=== PATIENT | female | born 1980 | race Caucasian/White ===

== ENCOUNTER 2018-05-14 02:00 | Inpatient (IN) | payer BC, OTHER ==
[~2018-05-14] VITALS: Ht 172.7 cm; Wt 68.2 kg
[2018-05-14 02:06] VITALS: Ht 172.7 cm; Wt 68.2 kg
[2018-05-14] MEDS ORDERED: LORAZEPAM 2 MG INJ IV STA (02:20)
[2018-05-14] MEDS ORDERED: SOD CHLORIDE 0.9% 500 ML IV STA (02:20)
[2018-05-14] MEDS ORDERED: LORAZEPAM 2 MG INJ IV ONE (03:00)
[2018-05-14] MEDS ORDERED: LEVETIRACETAM 1000 MG (PMX) 100 ML IVPB ONE (03:00)
[2018-05-14] MEDS ORDERED: LAMOTRIGINE 100 MG TAB PO ONE (03:30)
[2018-05-14] MEDS ORDERED: BUSPIRONE 10 MG TAB PO ONE (03:30)
[2018-05-14] MEDS ORDERED: SOD CHLORIDE 0.9% 1,000 ML IV SCH (05:10)
[2018-05-14] MEDS ORDERED: HYDROCODONE/APAP (5/325) TAB PO PRN (05:30)
[2018-05-14] MEDS ORDERED: LORAZEPAM 2 MG INJ IV PRN ×2 (05:30)
[2018-05-14] MEDS ORDERED: NACL 0.9% 3 ML SYG IV SCH (05:30)
--- NOTE | 2018-05-14 05:36 | HP ---
Date/Time of Note Date/Time of Note DATE: 05/14/18 TIME: 05:36 Assessment/Plan VTE Prophylaxis Pharmacological prophylaxis: other Assessment/Plan Hospital Course Objective Physical exam General: Patient is laying in bed, very lethargic Mentation: Patient is arousable but lethargic Head: Normocephalic atraumatic Eyes: EOMI, pupils reactive to light Neck: Supple, nontender, midline Respiratory: Clear to auscultation bilaterally Cardiovascular: regular rate, no obvious murmurs Gastrointestinal: non-tender to palpation, bowel sounds heard. Neurological: Moves all extremities spontaneously Skin: No new skin lesions Assessment and plan Refractory epilepsy -Patient is supposedly allergic to benzodiazepines, as well as a variety of other medications, however 1 of her home medications is Onfi 5mg daily, which is a benzodiazepine so it is likely that patient is not allergic to benzodiazepine as her home nurse states. Patient was also given a dose of Ativan in the ED and has had no allergic reaction. -Ativan as needed -Patient states she has a specialist at [facility], unable to give name at this time due to lethargic state, will need to be inquire later -Restarted patient's Lamictal 150 mg twice daily, patient also supposedly on BuSpar 10 mg as needed daily for seizure onset -Patient does have a history of traumatic brain injury which is the likely cause of the seizures however the story at this time does not seem to fit as she states she has seizures every day, which is very uncommon. -We will defer to day team to consult neurology Ethanol use -Per home nurse patient was drinking heavily today, as at this time do not know if patient is an alcoholic, however will start patient on fluids and banana bag, no apparent signs of withdrawal at this time, will need to monitor closely and initiate withdrawal therapy if needed. -Ativan as needed for withdrawal symptoms, anxiety, or agitation Disposition -Admit patient for refractory epilepsy, await results of urine drug screen and day team to consult neurology. Result Diagram: 05/14/1840905/14/18409 Results 24hrs Laboratory Tests Test 05/14/18 04:10 White Blood Count 5.6 Red Blood Count 3.77 L Hemoglobin 11.7 L Hematocrit 35.2 L Mean Corpuscular Volume 93.4 Mean Corpuscular Hemoglobin 31.0 Mean Corpuscular Hemoglobin Concent 33.2 Red Cell Distribution Width 12.8 Platelet Count 250 Mean Platelet Volume 10.2 Immature Granulocytes % 0.200 Neutrophils % 51.2 Lymphocytes % 35.3 Monocytes % 8.3 Eosinophils % 4.5 Basophils % 0.5 Nucleated Red Blood Cells % 0.0 Immature Granulocytes # 0.010 Neutrophils # 2.9 Lymphocytes # 2.0 Monocytes # 0.5 Eosinophils # 0.3 Basophils # 0.0 Nucleated Red Blood Cells # 0.0 Sodium Level 142 Potassium Level 3.8 Chloride Level 108 Carbon Dioxide Level 25 Anion Gap 9 Blood Urea Nitrogen 7 Creatinine 0.60 Est Glomerular Filtrat Rate mL/min > 60 Glucose Level 80 Calcium Level 9.1 Troponin I < 0.012 Serum HCG, Qualitative NEGATIVE HPI/ROS Admit Date/Time Admit Date/Time Hx of Present Illness Patient is a female with a past medical history significant for severe epilepsy as well as traumatic brain injury who presents to [facility] brought in by ambulance for refractory epilepsy. 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 Patient is lethargic at this time after being given Ativan in the ED however is able to mumble some words and states that she has seizures every day but does not end up in the ED every day. Patient states she does have a neurologist as well as a seizure specialist at [facility] however is too lethargic to give me the exact name at this time. Further HPI cannot be done due to patient's lethargic status. PMH/Family/Social Past Medical History Coded Allergies: Benzodiazepines (Verified Allergy, Unknown, 05/14/18) Sulfa (Sulfonamide Antibiotics) (Verified Allergy, Unknown, 05/14/18) levetiracetam (Verified Allergy, Unknown, 05/14/18) oxcarbazepine (Verified Allergy, Unknown, 05/14/18) phenytoin (Verified Allergy, Unknown, 05/14/18) topiramate (Verified Allergy, Unknown, 05/14/18) Social History Smoking Status: Current every day smoker Exam/Review of Systems Vital Signs Vitals Vital Signs Date Temp Pulse Resp B/P (MAP) Pulse Ox O2 O2 Flow FiO2 Time Delivery Rate 05/14/18 97.4 100 16 132/86 98 Room Air 04:00 (101) FILI,BALJINDER May 14, 2018 05:36
[2018-05-14] MEDS ORDERED: KETOROLAC 15 MG INJ IV STA (05:59)
[2018-05-14] MEDS ORDERED: LAMO150T2 PO (07:20)
[2018-05-14] MEDS ORDERED: FOLI-49 PO (07:21)
[2018-05-14] MEDS ORDERED: CITA40TA6 PO (07:21)
[2018-05-14] MEDS ORDERED: CLOB10TA PO ×2 (07:21→09:04)
[2018-05-14] MEDS ORDERED: LACT1TAB19 PO (07:22)
[2018-05-14] MEDS ORDERED: HYDR-4011 PO (07:23)
[2018-05-14] MEDS ORDERED: LAMOTRIGINE 100 MG TAB PO SCH ×2 (09:00→10:00)
[2018-05-14] MEDS ORDERED: FAMOTIDINE 20 MG INJ IV SCH (09:00)
[2018-05-14] MEDS ORDERED: MULTIVITAMINS 10 ML, THIAMINE 100 MG, FOLIC ACID 1 MG in SOD CHLORIDE 0.9% 1,000 ML IVPB SCH (09:00)
[2018-05-14] MEDS ORDERED: HYDR-3605 PO (09:05)
[2018-05-14] MEDS ORDERED: FOLIC ACID 1 MG TAB PO SCH (10:00)
[2018-05-14] MEDS ORDERED: HYDROCODONE/APAP (7.5/325) TAB PO PRN (10:00)
[2018-05-14] MEDS ORDERED: [UNRECOGNIZED DRUG - REMARK] XX SCH (10:00)
[2018-05-14] MEDS ORDERED: CITALOPRAM 20 MG TAB PO SCH (10:00)
[2018-05-14] MEDS ORDERED: CLOBAZAM 5 MG PO SCH (10:00)
--- NOTE | 2018-05-14 14:47 | PDOCDIS ---
Discharge Instructions DIAGNOSIS Discharge Diagnosis Seizure CONDITION 2 [id number] Patient Condition: [id number] Stable FOLLOW UP/APPOINTMENTS Follow-up Plan See your neurologist in clinic [facility]. Continue your medications. Return to the ED if you have any concerning symptoms KATHLEEN MIKE MD May 14, 2018 14:47
--- NOTE | 2018-05-14 14:53 | DS ---
Date/Time of Note Date/Time of Note DATE: 05/14/18 TIME: 14:52 Discharge Summary Admission/Discharge Info Admit Date/Time Discharge Date/Time Discharge Diagnosis Seizure Patient Condition: Stable Hospital Course The patient was given ativan following a seizure. She was continued on her home anti-epileptic drugs and had no further seizure activity. Alcohol level was elevated. She was counseled to avoid alcohol as this can cause seizures. Neurology was consulted. However, the patient requested to be discharged prior to their evaluation. She has an appointment with her neurologist in the [facility] [place]. She was advise to return to the hospital if she has any concerning symptoms and to otherwise continue her AEDs. Home Meds Reported Medications Hydrocodone/Acetaminophen (Hydrocodon-Acetaminoph 7.5-325) 1 Each Tablet, 1 EACH PO DAILY PRN for SEVERE PAIN LEVEL 7-10, TAB 05/14/18 Clobazam (Onfi) 10 Mg Tablet, 5 MG PO DAILY, TAB 05/14/18 Lactobacillus Acidophilus (Acidophilus) 1 Each Tablet, 1 EACH PO DAILY, TAB 05/14/18 Folic Acid* (Folic Acid*) 1 Mg Tablet, 1 MG PO DAILY, TAB 05/14/18 Citalopram Hydrobromide* (Citalopram Hydrobromide*) 40 Mg Tablet, 40 MG PO QAM, #30 TAB 05/14/18 Lamotrigine* (Lamotrigine*) 150 Mg Tablet, 150 MG PO BID, TAB 05/14/18 Discontinued Reported Medications Clobazam (Onfi) 10 Mg Tablet, 10 MG PO BID, TAB 05/14/18 Follow-up Plan See your neurologist in clinic [facility]. Continue your medications. Return to the ED if you have any concerning symptoms Primary Care Provider Not On Staff Doctor Pending Labs Laboratory Tests Test 05/14/18 04:10 05/14/18 05:38 White Blood Count 5.6 10^3/ul (4.8-10.8) Red Blood Count 3.77 10^6/ul (4.20-5.40) Hemoglobin 11.7 g/dl (12.0-16.0) Hematocrit 35.2 % (37.0-47.0) Mean Corpuscular Volume 93.4 fl (82.0-101.0) Mean Corpuscular Hemoglobin 31.0 pg (29.0-33.0) Mean Corpuscular 33.2 g/dl (32.0-37.0) Hemoglobin Concent Red Cell Distribution Width 12.8 % (11.5-14.5) Platelet Count 250 10^3/UL (140-415) Mean Platelet Volume 10.2 fl (7.4-10.4) Immature Granulocytes % 0.200 % (0.001-0.429) Neutrophils % 51.2 % (39.0-77.0) Lymphocytes % 35.3 % (15.0-51.0) Monocytes % 8.3 % (0.0-11.0) Eosinophils % 4.5 % (0.0-7.0) Basophils % 0.5 % (0.0-2.0) Nucleated Red Blood Cells % 0.0 /100WBC (0.0-0.0) Immature Granulocytes # 0.010 10^3/ul (0.0-0.031) Neutrophils # 2.9 10^3/ul (1.6-7.5) Lymphocytes # 2.0 10^3/ul (0.8-2.9) Monocytes # 0.5 10^3/ul (0.3-0.9) Eosinophils # 0.3 10^3/ul (0.0-0.5) Basophils # 0.0 10^3/ul (0.0-0.1) Nucleated Red Blood Cells # 0.0 10^3/ul (0.0-0.0) Sodium Level 142 mmol/L (135-144) Potassium Level 3.8 mmol/L (3.5-5.1) Chloride Level 108 mmol/L (97-110) Carbon Dioxide Level 25 mmol/L (21-31) Anion Gap 9 (5-13) Blood Urea Nitrogen 7 mg/dl (7-20) Creatinine 0.60 mg/dl (0.44-1.00) Est Glomerular Filtrat > 60 mL/min (>60) Rate mL/min Glucose Level 80 mg/dl (70-220) Calcium Level 9.1 mg/dl (8.4-10.2) Troponin I < 0.012 ng/ml (0.000-0.120) Serum HCG, Qualitative NEGATIVE (NEGATIVE) Creatine Kinase 85 IU/L (23-200) Ethyl Alcohol Level 58.0 mg/dl (0-0) KATHLEEN MIKE MD May 14, 2018 14:53
[2018-05-14 15:16] VITALS: BP 121/70; PULSE 72; RESP 16
--- NOTE | 2018-06-10 02:08 | ERD ---
ER Documentation Chief Complaint Chief Complaint DARREN LUDWIG,from home,sz for unknown length of time,hx sz per EMS report HPI This is a 29-year-old from home by rescue from home with complaints of seizure from home at the time. Patient has a history of epilepsy in the past. Apparently she has a history of traumatic brain injury. Patient herself cannot provide any relevant history at this time she is postictal. ROS All systems reviewed and are negative except as per history of present illness. Medications Home Meds Reported Medications Hydrocodone/Acetaminophen (Hydrocodon-Acetaminoph 7.5-325) 1 Each Tablet, 1 EACH PO DAILY PRN for SEVERE PAIN LEVEL 7-10, TAB 05/14/18 Clobazam (Onfi) 10 Mg Tablet, 5 MG PO DAILY, TAB 05/14/18 Lactobacillus Acidophilus (Acidophilus) 1 Each Tablet, 1 EACH PO DAILY, TAB 05/14/18 Folic Acid* (Folic Acid*) 1 Mg Tablet, 1 MG PO DAILY, TAB 05/14/18 Citalopram Hydrobromide* (Citalopram Hydrobromide*) 40 Mg Tablet, 40 MG PO QAM, #30 TAB 05/14/18 Lamotrigine* (Lamotrigine*) 150 Mg Tablet, 150 MG PO BID, TAB 05/14/18 Allergies Allergies: Coded Allergies: Benzodiazepines (Verified Allergy, Unknown, 05/14/18) Sulfa (Sulfonamide Antibiotics) (Verified Allergy, Unknown, 05/14/18) levetiracetam (Verified Allergy, Unknown, 05/14/18) oxcarbazepine (Verified Allergy, Unknown, 05/14/18) phenytoin (Verified Allergy, Unknown, 05/14/18) topiramate (Verified Allergy, Unknown, 05/14/18) PMhx/Soc History of Surgery: No Anesthesia Reaction: No Hx Neurological Disorder: Yes (SEIZURES, TBI) Hx Respiratory Disorders: No Hx Cardiac Disorders: No Hx Psychiatric Problems: No Hx Miscellaneous Medical Probl: No Hx Alcohol Use: Yes (DAILY) Hx Substance Use: No Hx Tobacco Use: Yes (CIGARETTES) Smoking Status: Current every day smoker Physical Exam Physical Exam Const: No acute distress Head: Atraumatic Eyes: Normal Conjunctiva ENT: Normal External Ears, Nose and Mouth. Neck: Full range of motion. No meningismus. Resp: Clear to auscultation bilaterally Cardio: Regular rate and rhythm, no murmurs Abd: Soft, non tender, non distended. Normal bowel sounds Skin: No petechiae or rashes Back: No midline or flank tenderness Ext: No cyanosis, or edema Neur: Awake and alert Psych: Normal Mood and Affect Results 24 hrs Laboratory Tests Test 05/14/18 04:10 05/14/18 05:38 White Blood Count 5.6 10^3/ul Red Blood Count 3.77 10^6/ul Hemoglobin 11.7 g/dl Hematocrit 35.2 % Mean Corpuscular Volume 93.4 fl Mean Corpuscular Hemoglobin 31.0 pg Mean Corpuscular Hemoglobin Concent 33.2 g/dl Red Cell Distribution Width 12.8 % Platelet Count 250 10^3/UL Mean Platelet Volume 10.2 fl Immature Granulocytes % 0.200 % Neutrophils % 51.2 % Lymphocytes % 35.3 % Monocytes % 8.3 % Eosinophils % 4.5 % Basophils % 0.5 % Nucleated Red Blood Cells % 0.0 /100WBC Immature Granulocytes # 0.010 10^3/ul Neutrophils # 2.9 10^3/ul Lymphocytes # 2.0 10^3/ul Monocytes # 0.5 10^3/ul Eosinophils # 0.3 10^3/ul Basophils # 0.0 10^3/ul Nucleated Red Blood Cells # 0.0 10^3/ul Sodium Level 142 mmol/L Potassium Level 3.8 mmol/L Chloride Level 108 mmol/L Carbon Dioxide Level 25 mmol/L Anion Gap 9 Blood Urea Nitrogen 7 mg/dl Creatinine 0.60 mg/dl Est Glomerular Filtrat Rate mL/min > 60 mL/min Glucose Level 80 mg/dl Calcium Level 9.1 mg/dl Troponin I < 0.012 ng/ml Serum HCG, Qualitative NEGATIVE Creatine Kinase 85 IU/L Ethyl Alcohol Level 58.0 mg/dl Current Medications Medications Dose Sig/Jina Start Time Status Last (Trade) Ordered Route PRN Stop Time Admin Dose Reason Admin Sodium 500 ml @ Q1H STAT 05/14/18 DC 05/14/18 Chloride 500 mls/hr IV 02:20 02:20 05/14/18 03:19 Lorazepam 1 mg ONCE STAT 05/14/18 DC 05/14/18 (Ativan) IV 02:20 02:28 05/14/18 02:21 Lorazepam 1 mg ONCE ONCE 05/14/18 DC (Ativan) IV 03:00 05/14/18 03:01 100 ml @ ONCE ONCE 05/14/18 DC Levetiracetam 400 mls/hr IVPB 03:00 05/14/18 03:14 Buspirone 10 mg ONCE ONCE 05/14/18 DC HCl PO 03:30 (Buspar) 05/14/18 03:31 Lamotrigine 150 mg ONCE ONCE 05/14/18 DC (Lamictal) PO 03:30 05/14/18 03:31 Sodium 1,000 ml @ [id number] IV 05/14/18 DC Chloride 70 mls/hr 05:10 05/14/18 16:06 IV Flush 3 ml PER 05/14/18 DC (NS 3 ml) PROTOCOL IV 05:30 05/14/18 16:06 Lamotrigine 150 mg BID PO 05/14/18 DC 05/14/18 (Lamictal) 09:00 08:19 05/14/18 16:06 Lorazepam 1 mg Q10MIN PRN 05/14/18 DC (Ativan) IV seizure 05:30 05/14/18 16:06 1 tab Q4H PRN 05/14/18 DC Acetaminophen PO MODERATE 05:30 / PAIN LEVEL 05/14/18 09:45 Hydrocodone 4-6 Bitart ([place] (5/325)) 1,011.2 ml DAILY@09 05/14/18 DC 05/14/18 Multivitamins @ 125 mls/ IVPB 09:00 08:18 10 hr 05/14/18 16:06 ml/Thiamine HCl 100 mg/Folic Acid 1 mg/Sodium Chloride Lorazepam 0.5 mg Q6H PRN 05/14/18 DC (Ativan) IV 05:30 anxiety/agita 05/14/18 16:06 tion Famotidine 20 mg BID IV 05/14/18 DC 05/14/18 (Pepcid Iv) 09:00 10:19 05/14/18 16:06 Ketorolac 15 mg ONCE STAT 05/14/18 DC 05/14/18 Tromethamine IV 05:59 06:03 (Toradol) 05/14/18 06:00 Citalopram 40 mg QAM PO 05/14/18 DC 05/14/18 Hydrobromide 10:00 10:20 (Celexa) 05/14/18 16:06 Folic Acid 1 mg DAILY PO 05/14/18 DC 05/14/18 (Folic Acid) 10:00 10:20 05/14/18 16:06 Lamotrigine 150 mg BID PO 05/14/18 UNV (Lamictal) 10:00 5 mg DAILY PO 05/14/18 DC Miscellaneous 10:00 Information 05/14/18 16:06 1 tab Q6H PRN 05/14/18 DC Acetaminophen PO MODERATE 10:00 / PAIN LEVEL 05/14/18 16:06 Hydrocodone 4-6 Bitart ([place] (7.5-325)) CLOBAZAM IS Q8H XX 05/14/18 DC Miscellaneous NON-FORMULARY 10:00 ...PLEASE 05/14/18 16:06 Information CONSIDE... (*Order Clarification Bulletin) Procedures/MDM Emergency department course: Patient Shital charges placed in bed from the evaluation. 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 Management is accepted. He states he can have. Serial exams are stable. Medical decision making: Has had multiple seizures today given alteration in mental status I feel she is to be admitted for further evaluation management. Dr. Benoit is on-call and is calyx of the patient to service. Departure Diagnosis: Primary Impression: Seizure disorder Condition: Fair Patient Instructions: Seizure, Recurrent [Adult] ORI SANTANA Jun 10, 2018 02:08
== END 2018-05-14 16:06 | disposition home or self-care (01) | DRG 101 ==
LOC: E/R 02:00 → TEL 05:06 → CANRESERV 14:00 → E/R 16:06 → CANBEDREQ 20:47
PROVIDERS: ADMIT Internal Medicine; ATTEND Internal Medicine
DX: G40.802 Other epilepsy, not intractable, without status epilepticus (principal); Z87.820 Personal history of traumatic brain injury; Z72.0 Tobacco use
CPT/HCPCS: 36415; 70450; 71045; 80048; 80307; 82550; 84484; 84703; 85025; 93005; 96374; J1885; J1953; J2060; J3411; J7030; J7040